=== PATIENT | male | born 1940 | race Caucasian/White ===

== ENCOUNTER → 2016-12-14 | Day surgery (SDC) | payer MEDICARE, OTHER ==
[~2016-12-14] VITALS: Ht 179 cm; Wt 97.5 kg
[~2016-12-14] MED LIST: 'PARAFON FORTE500 M1 PO; ALBUTEROL2.5 MG/0.5 INH; ALLEGRA60 M1 PO; ALLOPURINOL100 MG PO; AMLODIPINE BESYL5 MG PO; AUGMENTIN 875 M1 TAB PO; BACTRIM DS 8001 TA1 PO; BIAXIN500 MG PO; CEFADROXIL500 M1 PO; CEPHALEXIN500 M1 PO; CIALIS5 MG PO; CLARITIN10 MG PO; CLEOCIN HCL300 MG PO; COMBIGAN 0.2%-010 ML OP; COUMADIN5 M2 PO; Carafate1 GM/10 ML PO; DIFLUCAN100 MG PO; DIURETIC; DOXYCYCLINE100 M3 PO; DUONEB 3 MG/3 ML3 M1 INH; FLEXERIL10 MG PO; FLONASE ALLERG9.9 ML NS; HYDR25T PO; K-TAB20 MEQ PO; LASIX20 MG PO; LEVAQUIN500 M1 PO; LISINOPRIL5 MG PO; LOPRESSOR50 MG PO; LYRICA75 MG PO; MACROBID100 M1 PO; MEDROL DOSEPAK4 MG PO; METOPROLOL TART50 M1 PO; MICRO-K EXTENCA8 MEQ PO; MOTRIN800 MG PO; NABUMETONE750 MG PO; NAPROSYN500 MG PO; NASONEX0.05 MG/AC NAS; NEURONTIN300 MG PO; NEXIUM40 MG PO; NORCO 5-325 TA1 EACH PO; NORVASC10 MG PO; NORVASC5 MG PO; PERCOCET 325 MG1 TA2 PO; PERCOCET 325 MG1 TA5 PO; PERCOCET 325 MG1 TAB PO; PERIDEX 480 ML480 ML PO; POTASSIUM PO; PRADAXA150 MG PO; PREDNISONE5 MG PO; PROTONIX40 MG PO; PROVENTIL0.09 MG/A1 INH; ROBITUSSIN AC 110 ML PO; SOTALOL HCL160 MG PO; TEKTURNA150 MG; VENTOLIN H0.09 MG/AC INH; VIBRAMYCIN100 MG PO; VICO10300 PO; VOLTAREN50 M1 PO; [UNRECOGNIZED DRUG - REMARK]; [UNRECOGNIZED DRUG - REMARK]
--- NOTE | ~2016-12-14 | O ---
[place], [place] OPERATIVE NOTE NAME: [facility] #: [id number] UNIT #: [id number] ROOM: DOCTOR: TOMAS MANUEL MD BIRTHDATE: [birth year] DOS: GASTROENDOSCOPIC REPORT A 76-year-old patient who was presented with chief complaint of epigastric distress, dyspepsia, history of atrial fibrillation, hypertension, COPD, diabetes mellitus, history of Wesley esophagus. PAST SURGICAL HISTORY: Back, neck, and cholecystectomy. PROCEDURE: Today's procedure part of investigation is colonoscopy and panendoscopy. PREMEDICATION: Versed and Diprivan. SCOPE: Olympus forward-viewing colonoscope 10L video. REPORT: After putting the patient in the left lateral position after application of lubricant to the scope, the scope was introduced. Thereafter, under direct visualization, I advanced through the length of colon without difficulty. Base of the cecum explored, appendiceal orifice identified, and ileocecal valve was defined. Some retained stool throughout the length of colon was experienced diverticulosis of moderate degree was noticed. This was mostly concentrated in the sigmoid colon, scattered diverticulosis also was noticed. The patient was gradually extubated, tolerated the procedure well. IMPRESSION: Moderate diverticulosis with concentration in sigmoid colon. Some retained stool. Otherwise, no other acute pathology noticeable. PLAN AND DISCUSSION: We are going to continue with high fiber. On further discussion, we are going to proceed with panendoscopic assessment. TOMAS MANUEL MD CM:OPRECORD:OPERATIVE NOTE [id number] TOMAS MANUEL MD 12/14/16 1157 interface
--- NOTE | ~2016-12-14 | O ---
[place], [place] OPERATIVE NOTE NAME: [facility] #: [id number] UNIT #: [id number] ROOM: DOCTOR: KALEB BUSBY,TOMAS BIRTHDATE: [birth year] DOS: GASTROENDOSCOPIC REPORT The patient was presented with chief complaint of epigastric distress. The patient with a history of Wesley esophagus. PROCEDURE: Today's procedure part of investigation is panendoscopy plus biopsies. PREMEDICATION: Versed and Diprivan. SCOPE: Olympus forward-viewing gastroscope Q10 video. REPORT: After putting the patient in the left lateral position and after application of lubricant to the scope, the scope was introduced; thereafter, under direct visualization, advanced through the length of the esophagus without difficulty. Short segment Wesley esophagus was identified in isolated patches. Hiatal hernia of 3 cm in length was seen. Gastric pouch was entered. Gastritis identified. Duodenal bulb, second and third part within normal limits. The patient was gradually extubated and tolerated the procedure well. IMPRESSION: Distal esophagitis with short segment Wesley esophagus, hiatal hernia and gastritis. PLAN AND DISCUSSION: This patient would benefit from omeprazole 20 mg 1 every day. Supportive management, otherwise outpatient followup. TOMAS MANUEL MD CM:OPRECORD:OPERATIVE NOTE 1111 [id number] TOMAS MANUEL MD 12/14/16 1158 interface
[2016-12-14 10:21] VITALS: BP 149/86
[2016-12-14 11:05] VITALS: BP 95/62
[2016-12-14 11:20] VITALS: BP 107/62
[2016-12-14 11:35] VITALS: BP 122/80
== END | disposition home or self-care (01) ==
LOC: SDC 12-10 10:15
DX: Z12.11 Encounter for screening for malignant neoplasm of colon (principal); K57.30 Diverticulosis of large intestine without perforation or abscess without bleeding; K22.70 Barrett's esophagus without dysplasia; K29.50 Unspecified chronic gastritis without bleeding; I10 Essential (primary) hypertension; J44.9 Chronic obstructive pulmonary disease, unspecified; E11.9 Type 2 diabetes mellitus without complications; I48.91 Unspecified atrial fibrillation; K44.9 Diaphragmatic hernia without obstruction or gangrene; Z90.49 Acquired absence of other specified parts of digestive tract; M19.90 Unspecified osteoarthritis, unspecified site; Z87.01 Personal history of pneumonia (recurrent); G62.9 Polyneuropathy, unspecified

== ENCOUNTER → 2016-12-19 | Outpatient (CLI) | payer MEDICARE, OTHER ==
[2016-12-19 11:31] LABS: C-REACTIVE PROTEIN 0.51 MG/DL (0-0.3); URIC ACID 4.4 mg/dL (3.5-7.2)
[2016-12-20 08:13] LABS: RHEUMATOID ARTHRITIS FACTOR <10.0 IU/mL (0.0-13.9)
== END | disposition home or self-care (01) ==
LOC: LAB 04:13 → ORTHO 04:13
PROVIDERS: Orthopaedic Surgery
DX: M25.532 Pain in left wrist (principal); M25.531 Pain in right wrist; E55.9 Vitamin D deficiency, unspecified

== ENCOUNTER 2017-05-03 12:46 | Emergency (ER) | payer MEDICARE ==
[~2017-05-03] VITALS: Wt 91.6 kg
[2017-05-03] MEDS ORDERED: CEPHALEXIN500 M1 PO (13:31)
== END 2017-05-03 13:42 | disposition home or self-care (01) ==
LOC: ED 12:46
DX: L08.9 Local infection of the skin and subcutaneous tissue, unspecified (principal); Z88.6 Allergy status to analgesic agent; Z88.8 Allergy status to other drugs, medicaments and biological substances; Z79.899 Other long term (current) drug therapy

== ENCOUNTER → 2017-12-13 | Outpatient (CLI) | payer MEDICARE | END | disposition home or self-care (01) | LOC: RAD 15:27 | DX: M19.041 Primary osteoarthritis, right hand (principal) ==

== ENCOUNTER → 2017-12-17 | Outpatient (CLI) | payer MEDICARE ==
[2017-12-17 16:04] LABS: BUN 24 mg/dl (7-24); CHLORIDE 106 mmol/L (98-107); CREATININE 1.13 mg/dL (0.70-1.30); POTASSIUM 3.1 mmol/L (3.5-5.1); SODIUM 142 mmol/L (136-145)
== END | disposition home or self-care (01) ==
LOC: LAB 15:30
DX: M79.643 Pain in unspecified hand (principal); R60.9 Edema, unspecified

== ENCOUNTER 2018-07-12 09:21 | Emergency (ER) | payer OTHER ==
[~2018-07-12] VITALS: Ht 182.8 cm; Wt 89.4 kg
[2018-07-12] MEDS ORDERED: CHLORZOXAZONE500 M2 PO (09:40)
[2018-07-12] MEDS ORDERED: NAPROSYN500 MG PO (09:40)
[2018-07-12 11:19] LABS: BILIRUBIN NEGATIVE (NEGATIVE); BLOOD 2+ (NEGATIVE); CLARITY SL CLOUDY (CLEAR); COLOR YELLOW (YELLOW); GLUCOSE NEGATIVE (NEGATIVE); KETONE NEGATIVE (NEGATIVE); LEUKO ESTERASE TRACE (NEGATIVE); NITRITE POSITIVE (NEGATIVE)
[2018-07-12 11:26] LABS: BACTERIA 3+; MUCOUS 1+; WBC 21-30 wbc/hpf (0-5)
[2018-07-12] MEDS ORDERED: MACROBID100 M1 PO (11:38)
== END 2018-07-12 11:45 | disposition home or self-care (01) ==
LOC: ED 09:21
PROVIDERS: Nurse Practitioner Family
DX: M54.12 Radiculopathy, cervical region (principal); N39.0 Urinary tract infection, site not specified; R03.0 Elevated blood-pressure reading, without diagnosis of hypertension; I48.91 Unspecified atrial fibrillation; J45.909 Unspecified asthma, uncomplicated; K21.9 Gastro-esophageal reflux disease without esophagitis; I10 Essential (primary) hypertension; Z88.5 Allergy status to narcotic agent; Z88.8 Allergy status to other drugs, medicaments and biological substances; Z79.2 Long term (current) use of antibiotics; Z79.899 Other long term (current) drug therapy; Z98.890 Other specified postprocedural states; Z87.891 Personal history of nicotine dependence